=== PATIENT | male | born 1985 | race Asian ===

== ENCOUNTER 2022-10-22 00:50 | Emergency (ER) | payer OTHER ==
[~2022-10-22] VITALS: Ht 175.3 cm; Wt 81.6 kg
[2022-10-22 02:40] VITALS: BP 154/88; TEMP 98.2
== END 2022-10-22 02:40 ==
LOC: ED 00:50
DX: S16.1XXA Strain of muscle, fascia and tendon at neck level, initial encounter (principal); S00.03XA Contusion of scalp, initial encounter; Y09 Assault by unspecified means; Y92.89 Other specified places as the place of occurrence of the external cause
CPT/HCPCS: 99283